=== PATIENT | male | born 1935 | race Caucasian/White ===

== ENCOUNTER 2021-01-18 16:25 | Inpatient (IN) | payer BC, OTHER ==
[~2021-01-18] VITALS: Ht 182.9 cm; Wt 71.7 kg
[~2021-01-18 16:25] MED LIST: ALPR0.5T6 PO; ANTI1CAP PO; ASPI-630 PO; ASPI325T11 PO; ATOR20TA58 PO; ATOR40TA59 PO; CHOL200059 PO; CLOP75TA PO; FERR-36 PO; GABA600T7 PO; HYDR500C16 PO; METO25TA4 PO; OMEG-33 PO; TAMS0.4C97 PO; b-12 PO
[2021-01-18] MEDS ORDERED: IV NORMAL SALINE 1000ML BAG 1,000 ML IV ONE (17:00)
[2021-01-18 17:23] LABS: BASO % 0 % (0-3); EOS % 0 % (0-3); HEMATOCRIT 37.1 % (39.0-53.0); HEMOGLOBIN 12.9 g/dL (13.0-17.5); LYMPH # 0.2 x10^3/uL (1.0-4.8); LYMPH % 6 % (24-48); MEAN CORPUSCULAR HEMOGLOBIN 43 pg (25-35); MEAN CORPUSCULAR HGB CONC 35 g/dL (31-37); MEAN CORPUSCULAR VOLUME 122 fL (79-100); MONO # 0.2 x10^3/uL (0.0-1.1); MONO % 7 % (0-9); NEUT # 2.5 x10^3/uL (1.8-7.7); NEUT % 86 % (31-73); PLATELET COUNT 224 x10^3/uL (140-400); RED BLOOD COUNT 3.04 x10^6/uL (4.30-5.70); RED CELL DISTRIBUTION WIDTH 16.4 % (11.5-14.5); WHITE BLOOD COUNT 2.9 x10^3/uL (4.0-11.0)
[2021-01-18 17:42] LABS: BARBITURATES NEG (NEG); BENZODIAZEPINES NEG (NEG); CANNABINOIDS NEG (NEG); COCAINE NEG (NEG); METHADONE NEG (NEG); OPIATES NEG (NEG); PHENCYCLIDINE NEG (NEG)
[2021-01-18 17:42] LABS: CREATININE 0.8 mg/dL (0.7-1.3); GFR 91.4; POTASSIUM 3.7 mmol/L (3.5-5.1)
[2021-01-18 17:45] LABS: AMPHETAMINE/METHAMPHETAMINE NEG (NEG)
[2021-01-18 17:52] LABS: % BANDS 1 % (0-9); % LYMPHS 8 % (24-48); % MONOS 5 % (0-10); % SEGS 86 % (35-66)
[2021-01-18 17:53] LABS: PLT ESTIMATE ADEQUATE (ADEQUATE)
[2021-01-18 17:54] LABS: ALBUMIN/GLOBULIN RATIO 1.1 (1.0-1.7); MAGNESIUM 1.6 mg/dL (1.8-2.4); TOTAL BILIRUBIN 0.6 mg/dL (0.2-1.0); TOTAL PROTEIN 5.7 g/dL (6.4-8.2)
[2021-01-18 17:57] LABS: CREATINE KINASE 73 U/L (39-308)
--- NOTE | 2021-01-18 17:58 | RAD ---
Exam: CT head INDICATION: Altered mental status, Covid positive TECHNIQUE: Sequential axial images through the head were obtained without the administration of IV co ntrast. Exposure: One or more of the following in the visualized dose reduction techniques were utilized for this examination: 1. Automated exposure control 2. Adjustment of the MA and/or KV according to patient size 3. Use of iterative of reconstructive technique Comparisons: 09/25/2015 FINDINGS: No focal parenchymal lesion or hemorrhage is identified. There is no midline shift or sulcal effaceme nt. Patchy evidence in the periventricular white matter. This is similar when compared to the prior exam. No acute vascular territory infarction is identified. Gomez-white distinction is preserved. The ventricular system is within normal limits without compression hydrocephalus. The basal cisterns are well maintained. The visualized portions of the paranasal sinuses and mastoid air cells are well-pneumatized. No acute fractures. IMPRESSION: No acute intracranial abnormality. Electronically signed by: Camryn Chavarria MD (01/18/2021 5:56 PM) [facility]
--- NOTE | 2021-01-18 18:21 | RAD ---
XR CHEST 1V History: Altered mental status Comparison: None. Technique: Portable AP radiograph of the chest. Findings: The lungs are adequately inflated. There are bibasilar somewhat linear opacities and a diffuse left l ower lobe opacity. The upper lobes are clear. No pleural effusion or pneumothorax. The cardiomediasti nal silhouette and pulmonary vasculature are within normal limits. Impression: 1. Diffuse left lower lobe opacity superimposed on linear basilar opacities may represent multifocal infection and/or atelectasis. Electronically signed by: Brian Jimenes MD (01/18/2021 6:18 PM) [facility]
--- NOTE | 2021-01-18 18:58 | EKG ---
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
--- NOTE | 2021-01-18 18:58 | EKG ---
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
[2021-01-18] MEDS ORDERED: HALOPERIDOL LACTATE 5 MG/ML VIAL. IM ONE (19:00)
--- NOTE | 2021-01-18 20:05 | PHYS DOC ---
Past Medical History Past Medical History: Hypertension, VA, Unknown Additional Past Medical Histor: PT IS POOR HISTORIAN. Past Surgical History: Other Additional Past Surgical Histo: CARDIAC STENTS. Unknown Smoking Status: Former Smoker Alcohol Use: None Drug Use: None General Adult EDM: Chief Complaint: SHORTNESS OF BREATH HPI: HPI: Patient is a 85 year old male with history of VA, hypertension, very hard of hearing, who presents to the ED today from home by EMS. I spoke to patient's daughter, she states patient has been outside for 30 to 45 minutes. When they went to check on him he was confused, he was also short of air. She states he has history of dementia but currently not acting like herself. She also states patient was tested for COVID-19 this morning because everybody in the house he lives is positive for Covid. Review of Systems: Review of Systems: Constitutional: Reports fever Eyes: Denies change in visual acuity. [] HENT: Denies nasal congestion or sore throat. [] Respiratory: Reports shortness of breath Cardiovascular: Denies chest pain or edema. [] GI: Denies abdominal pain, nausea, vomiting, bloody stools or diarrhea. [] : Denies dysuria. [] Musculoskeletal: Denies back pain or joint pain. [] Integument: Denies rash. [] Neurologic: Reports altered mental status. Denies headache, focal weakness or sensory changes. [] Psychiatric: Denies depression or anxiety. [] Heart Score: C/O Chest Pain: N/A Risk Factors: Risk Factors: DM, Current or recent (<one month) smoker, HTN, HLP, family history of CAD, obesity. Risk Scores: Score 0 - 3: 2.5% MACE over next 6 weeks - Discharge Home Score 4 - 6: 20.3% MACE over next 6 weeks - Admit for Clinical Observation Score 7 - 10: 72.7% MACE over next 6 weeks - Early Invasive Strategies Current Medications: Current Medications Medications (Trade) Dose Ordered Sig/Carrillo Start Time Stop Time Status Last Admin Dose Admin Haloperidol Lactate (Haldol Inj) 5 mg 1X ONCE 01/18/21 19:00 01/18/21 19:01 DC 01/18/21 18:59 5 MG Sodium Chloride 1,000 ml @ 1,000 mls/hr 1X ONCE 01/18/21 17:00 01/18/21 17:59 DC 01/18/21 17:20 1,000 MLS/HR Allergies: Allergies: Allergies Coded Allergies Type Severity Reaction Last Updated Verified morphine Allergy Intermediate 01/18/21 Yes Physical Exam: PE: Constitutional: Well developed, well nourished, no acute distress, non-toxic appearance. [] HENT: Normocephalic, atraumatic, bilateral external ears normal, oropharynx moist, no oral exudates, nose normal. Very [place] Eyes: PERRLA, EOMI, conjunctiva normal, no discharge. [] Neck: Normal range of motion, no tenderness, supple, no stridor. [] Cardiovascular:Heart rate regular rhythm Lungs & Thorax: Diminished breath sounds Abdomen: Bowel sounds normal, soft, no tenderness, no masses, no pulsatile masses. [] Skin: Warm, dry, no erythema, no rash. [] Back: No tenderness, no CVA tenderness. [] Extremities: No tenderness, no cyanosis, no clubbing, ROM intact, no edema. [] Neurologic: Alert and oriented X 1-2, normal motor function, normal sensory function, no focal deficits noted. Cranial nerves II through XII intact Psychologic: Flat affect Current Patient Data: Labs: Laboratory Tests Test 01/18/21 16:53 01/18/21 17:00 01/18/21 17:18 01/18/21 17:20 SARS-CoV-2 Antigen (Rapid) Positive (NEGATIVE) *A White Blood Count 2.9 x10^3/uL (4.0-11.0) L Red Blood Count 3.04 x10^6/uL (4.30-5.70) L Hemoglobin 12.9 g/dL (13.0-17.5) L Hematocrit 37.1 % (39.0-53.0) L Mean Corpuscular Volume 122 fL (79-100) H Mean Corpuscular Hemoglobin 43 pg (25-35) H Mean Corpuscular Hemoglobin Concent 35 g/dL (31-37) Red Cell Distribution Width 16.4 % (11.5-14.5) H Platelet Count 224 x10^3/uL (140-400) Neutrophils (%) (Auto) 86 % (31-73) H Lymphocytes (%) (Auto) 6 % (24-48) L Monocytes (%) (Auto) 7 % (0-9) Eosinophils (%) (Auto) 0 % (0-3) Basophils (%) (Auto) 0 % (0-3) Neutrophils # (Auto) 2.5 x10^3/uL (1.8-7.7) Lymphocytes # (Auto) 0.2 x10^3/uL (1.0-4.8) L Monocytes # (Auto) 0.2 x10^3/uL (0.0-1.1) Eosinophils # (Auto) 0.0 x10^3/uL (0.0-0.7) Basophils # (Auto) 0.0 x10^3/uL (0.0-0.2) Segmented Neutrophils % 86 % (35-66) H Band Neutrophils % 1 % (0-9) Lymphocytes % 8 % (24-48) L Monocytes % 5 % (0-10) Platelet Estimate Adequate (ADEQUATE) Macrocytosis Marked Sodium Level 138 mmol/L (136-145) Potassium Level 3.7 mmol/L (3.5-5.1) Chloride Level 105 mmol/L (98-107) Carbon Dioxide Level 22 mmol/L (21-32) Anion Gap 11 (6-14) Blood Urea Nitrogen 20 mg/dL (8-26) Creatinine 0.8 mg/dL (0.7-1.3) Estimated GFR (Cockcroft-Gault) 91.4 BUN/Creatinine Ratio 25 (6-20) H Glucose Level 108 mg/dL (70-99) H Lactic Acid Level 0.9 mmol/L (0.4-2.0) Calcium Level 8.0 mg/dL (8.5-10.1) L Magnesium Level 1.6 mg/dL (1.8-2.4) L Total Bilirubin 0.6 mg/dL (0.2-1.0) Aspartate Amino Transferase (AST) 21 U/L (15-37) Alanine Aminotransferase (ALT) 23 U/L (16-63) Alkaline Phosphatase 77 U/L (46-116) Ammonia 18 mcmol/L (11-34) Creatine Kinase 73 U/L (39-308) Creatine Kinase MB (Mass) 1.0 ng/mL (0.0-3.6) Creatine Kinase MB Relative Index % (0-4) Troponin I Quantitative < 0.017 ng/mL (0.000-0.055) DE-Xrf-S-Type Natriuretic Peptide 608 pg/mL (0-449) H Total Protein 5.7 g/dL (6.4-8.2) L Albumin 3.0 g/dL (3.4-5.0) L Albumin/Globulin Ratio 1.1 (1.0-1.7) Lipase 85 U/L (73-393) Thyroid Stimulating Hormone (TSH) 2.835 uIU/mL (0.358-3.74) POC Troponin I 0.01 ng/ml (<0.08) Urine Opiates Screen Neg (NEG) Urine Methadone Screen Neg (NEG) Urine Barbiturates Neg (NEG) Urine Phencyclidine Screen Neg (NEG) Urine Amphetamine/Methamphetamine Neg (NEG) Urine Benzodiazepines Screen Neg (NEG) Urine Cocaine Screen Neg (NEG) Urine Cannabinoids Screen Neg (NEG) Urine Ethyl Alcohol Neg (NEG) Laboratory Tests 01/18/21 17:00 Laboratory Tests 01/18/21 17:00 Vital Signs: Vital Signs Date Time Temp Pulse Resp B/P (MAP) Pulse Ox O2 Delivery O2 Flow Rate FiO2 01/18/21 16:45 121 118/65 (82) 91 Room Air 01/18/21 16:38 101.2 24 101.2 EKG: EKG: [] Radiology/Procedures: Radiology/Procedures: []PROCEDURE: CT HEAD WO CONTRAST Exam: CT head INDICATION: Altered mental status, Covid positive TECHNIQUE: Sequential axial images through the head were obtained without the administration of IV contrast. Exposure: One or more of the following in the visualized dose reduction techniques were utilized for this examination: 1. Automated exposure control 2. Adjustment of the MA and/or KV according to patient size 3. Use of iterative of reconstructive technique Comparisons: 09/25/2015 FINDINGS: No focal parenchymal lesion or hemorrhage is identified. There is no midline shift or sulcal effacement. Patchy evidence in the periventricular white matter. This is similar when compared to the prior exam. No acute vascular territory infarction is identified. Gomez-white distinction is preserved. The ventricular system is within normal limits without compression hydrocephalus. The basal cisterns are well maintained. The visualized portions of the paranasal sinuses and mastoid air cells are well- pneumatized. No acute fractures. IMPRESSION: No acute intracranial abnormality. Electronically signed by: Camryn Cabrera MD (01/18/2021 5:56 PM) [facility] DICTATED and SIGNED BY: CAMRYN CABRERA MD DATE: 01/18/21 [id number] PROCEDURE: PORTABLE CHEST 1V XR CHEST 1V History: Altered mental status Comparison: None. Technique: Portable AP radiograph of the chest. Findings: The lungs are adequately inflated. There are bibasilar somewhat linear opacities and a diffuse left lower lobe opacity. The upper lobes are clear. No pleural effusion or pneumothorax. The cardiomediastinal silhouette and pulmonary vasculature are within normal limits. Impression: 1. Diffuse left lower lobe opacity superimposed on linear basilar opacities may represent multifocal infection and/or atelectasis. Electronically signed by: Brian Carr MD (01/18/2021 6:18 PM) [facility] DICTATED and SIGNED BY: BRIAN CARR MD DATE: 01/18/21 [id number] Course & Med Decision Making: Course & Med Decision Making Pertinent Labs and Imaging studies reviewed. (See chart for details) This is a 85-year-old male patient presenting to the ED today to be evaluated for shortness of breath, fever, altered mental status. See HPI. Vitals on arrival to the ED temperature 101.2, heart rate 118, respiration 24, blood pressure 118/65, O2 sats 95% on room air. CBC with a WBC of 2.9, hemoglobin 12.9 with hematocrit of 37.1. CMP with magnesium of 1.6. Chest x-ray noted for possible pneumonia. Positive for COVID-19. CT of the head is negative. Spoke with Dr. Leo who accepted patient for admission Dragon Disclaimer: Alma Disclaimer: This electronic medical record was generated, in whole or in part, using a voice recognition dictation system. Departure Departure Impression: Primary Impression: SOB (shortness of breath) Additional Impressions: AMS (altered mental status) Qualified Codes: R41.82 - Altered mental status, unspecified COVID-19 Disposition: ADMITTED INPATIENT Condition: STABLE Referrals: BONNIE CAREY MD (PCP) SHO HOLLAND APRN Jan 18, 2021 20:05
[2021-01-18] MEDS ORDERED: ACETAMINOPHEN 325 MG TABLET. PO PRN (20:15)
[2021-01-18] MEDS ORDERED: ONDANSETRON PF 4 MG/2 ML VIAL. IVP PRN ×2 (20:15→23:30)
[2021-01-18] MEDS ORDERED: MECO10005 PO (22:08)
[2021-01-18] MEDS ORDERED: CETI10TA74 PO (22:08)
[2021-01-18] MEDS ORDERED: METO25TA4 PO (22:08)
[2021-01-18] MEDS ORDERED: Areds 2 PO (22:08)
[2021-01-18 22:26] VITALS: BP 130/56
[2021-01-18] MEDS ORDERED: REMDESIVIR LOAD in IV NORMAL SALINE 250ML TV IV ONE (22:30)
[2021-01-18 23:00] VITALS: BP 141/74
[2021-01-18] MEDS ORDERED: ACETAMINOPHEN 650 MG SUPP.RECT. PR PRN ×2 (23:00→23:30)
--- NOTE | 2021-01-18 23:22 | PDOC1 ---
History and Physical Date of Service: DOS: DATE: 01/18/21 TIME: 23:22 Chief Complaint: Chief Complain: Shortness of breath History of Present Illness: HPI: 85 year old male with history of MA, hypertension, very hard of hearing, who presents to the ED today from home by EMS. I spoke to patient's daughter, she states patient has been outside for 30 to 45 minutes. When they went to check on him he was confused, he was also short of air. She states he has history of dementia but currently not acting like herself. She also states patient was tested for COVID-19 this morning because everybody in the house he lives is positive for Covid. Past Medical/Surgical History: PMH/PSH: Past Medical History: Hypertension, MA, Past Surgical History: CARDIAC STENTS. Unknown Allergies: Allergies: Coded Allergies: morphine (Verified Allergy, Intermediate, 01/18/21) Family History: Family History: Reviewed with no relevant findings Social History: Social History: Smoking Status: Former Smoker Alcohol Use: None Drug Use: None Current Medications: Current Medications Current Medications Sodium Chloride 1,000 ml @ 1,000 mls/hr 1X ONCE IV Last administered on 01/18/21at 17:20; Start 01/18/21 at 17:00; Stop 01/18/21 at 17:59; Status DC Haloperidol Lactate (Haldol Inj) 5 mg 1X ONCE IM Last administered on 01/18/21at 18:59; Start 01/18/21 at 19:00; Stop 01/18/21 at 19:01; Status DC Lorazepam (Ativan Inj) 0.5 mg 1X ONCE IVP Last administered on 01/18/21at 20:10; Start 01/18/21 at 20:15; Stop 01/18/21 at 20:16; Status DC Lorazepam (Ativan Inj) 2 mg STK-MED ONCE .ROUTE ; Start 01/18/21 at 20:07; Stop 01/18/21 at 20:07; Status DC Ondansetron HCl (Zofran) 4 mg PRN Q8HRS PRN IVP NAUSEA/VOMITING; Start 01/18/21 at 20:15; Stop 01/19/21 at 20:14 Acetaminophen (Tylenol) 650 mg PRN Q4HRS PRN PO FEVER > 100.3'F; Start 01/18/21 at 20:15; Stop 01/19/21 at 20:14 Remdesivir 200 mg/ Sodium Chloride 210 ml @ 210 mls/hr 1X ONCE IV Last administered on 01/18/21at 23:08; Start 01/18/21 at 22:30; Stop 01/18/21 at 23:29 Remdesivir 100 mg/ Sodium Chloride 230 ml @ 460 mls/hr Q24H IV ; Start 01/19/21 at 21:00; Stop 01/22/21 at 21:29 Acetaminophen (Tylenol Supp) 650 mg PRN Q6HRS PRN [place] MILD PAIN / TEMP > 100.3'F Last administered on 01/18/21at 23:10; Start 01/18/21 at 23:00 Active Scripts Active Metoprolol Tartrate 25 Mg Tablet 12.5 Mg PO BID Clopidogrel (Clopidogrel Bisulfate) 75 Mg Tablet 75 Mg PO DAILYWBKFT Aspirin Ec (Aspirin) 325 Mg Tablet.dr 325 Mg PO DAILYWBKFT Vitamin D-3 (Cholecalciferol (Vitamin D3)) 2,000 Unit Tablet 2,000 Unit PO DAILY Iron (Ferrous Sulfate) 325 Mg Tablet 325 Mg PO DAILY Reported B12 Active (Mecobalamin) 1,000 Mcg Tab.chew 1,000 Mcg PO DAILY [Areds 2] 1 Tab PO BID Metoprolol Tartrate 25 Mg Tablet 1 Tab PO DAILY Zyrtec (Cetirizine Hcl) 10 Mg Tablet 1 Tab PO DAILY Hydroxyurea 500 Mg Capsule 1,500 Mg PO HS takes fr Mom to Sat. Nothing on Sun. [b-12] 2 Tab PO DAILY Atorvastatin Calcium 20 Mg Tablet 40 Mg PO HS ROS: Review of Systems Review of System Unable to obtain due to altered mental status Physical Exam: Vital Signs: Vital Signs Date Time Temp Pulse Resp B/P (MAP) Pulse Ox O2 Delivery O2 Flow Rate FiO2 01/18/21 22:26 103.0 88 130/56 (80) 93 Nasal Cannula 103.0 01/18/21 20:21 28 2.0 Physcial Exam: General: Well developed, well nourished, no acute distress, well appearing HEENT: Pupils equally round and reactive to light, EOMI, no discharge, normal conjunctiva Neck: Supple, no nuchal rigidity, no JVD, trachea midline, no tenderness Cardiac: RRR, no murmurs, no gallops, no rubs Chest/Lungs: CTAB, no wheeze, no rhonchi, no crackles Abdomen: soft, non-distended, no guarding, no peritoneal signs, non-tender Back: No tenderness Extremities: no edema, pulses intact, non-tender,capillary refill <3 sec bilateral upper and lower extremities, Neuro: Alert and oriented x 4, no focal deficits, normal speech Labs: Labs: Laboratory Tests Test 01/18/21 16:53 01/18/21 17:00 01/18/21 17:18 01/18/21 17:20 SARS-CoV-2 Antigen (Rapid) Positive (NEGATIVE) White Blood Count 2.9 x10^3/uL (4.0-11.0) Red Blood Count 3.04 x10^6/uL (4.30-5.70) Hemoglobin 12.9 g/dL (13.0-17.5) Hematocrit 37.1 % (39.0-53.0) Mean Corpuscular Volume 122 fL (79-100) Mean Corpuscular Hemoglobin 43 pg (25-35) Mean Corpuscular Hemoglobin Concent 35 g/dL (31-37) Red Cell Distribution Width 16.4 % (11.5-14.5) Platelet Count 224 x10^3/uL (140-400) Neutrophils (%) (Auto) 86 % (31-73) Lymphocytes (%) (Auto) 6 % (24-48) Monocytes (%) (Auto) 7 % (0-9) Eosinophils (%) (Auto) 0 % (0-3) Basophils (%) (Auto) 0 % (0-3) Neutrophils # (Auto) 2.5 x10^3/uL (1.8-7.7) Lymphocytes # (Auto) 0.2 x10^3/uL (1.0-4.8) Monocytes # (Auto) 0.2 x10^3/uL (0.0-1.1) Eosinophils # (Auto) 0.0 x10^3/uL (0.0-0.7) Basophils # (Auto) 0.0 x10^3/uL (0.0-0.2) Segmented Neutrophils % 86 % (35-66) Band Neutrophils % 1 % (0-9) Lymphocytes % 8 % (24-48) Monocytes % 5 % (0-10) Platelet Estimate Adequate (ADEQUATE) Macrocytosis Marked Sodium Level 138 mmol/L (136-145) Potassium Level 3.7 mmol/L (3.5-5.1) Chloride Level 105 mmol/L (98-107) Carbon Dioxide Level 22 mmol/L (21-32) Anion Gap 11 (6-14) Blood Urea Nitrogen 20 mg/dL (8-26) Creatinine 0.8 mg/dL (0.7-1.3) Estimated GFR (Cockcroft-Gault) 91.4 BUN/Creatinine Ratio 25 (6-20) Glucose Level 108 mg/dL (70-99) Lactic Acid Level 0.9 mmol/L (0.4-2.0) Calcium Level 8.0 mg/dL (8.5-10.1) Magnesium Level 1.6 mg/dL (1.8-2.4) Total Bilirubin 0.6 mg/dL (0.2-1.0) Aspartate Amino Transf (AST/SGOT) 21 U/L (15-37) Alanine Aminotransferase (ALT/SGPT) 23 U/L (16-63) Alkaline Phosphatase 77 U/L (46-116) Ammonia 18 mcmol/L (11-34) Creatine Kinase 73 U/L (39-308) Creatine Kinase MB (Mass) 1.0 ng/mL (0.0-3.6) Creatine Kinase MB Relative Index % (0-4) Troponin I Quantitative < 0.017 ng/mL (0.000-0.055) MK-Bhb-K-Type Natriuretic Peptide 608 pg/mL (0-449) Total Protein 5.7 g/dL (6.4-8.2) Albumin 3.0 g/dL (3.4-5.0) Albumin/Globulin Ratio 1.1 (1.0-1.7) Lipase 85 U/L (73-393) Procalcitonin < 0.05 ng/mL (0.00-0.10) Thyroid Stimulating Hormone (TSH) 2.835 uIU/mL (0.358-3.74) Bedside Troponin I 0.01 ng/ml (<0.08) Urine Opiates Screen Neg (NEG) Urine Methadone Screen Neg (NEG) Urine Barbiturates Neg (NEG) Urine Phencyclidine Screen Neg (NEG) Urine Amphetamine/Methamphetamine Neg (NEG) Urine Benzodiazepines Screen Neg (NEG) Urine Cocaine Screen Neg (NEG) Urine Cannabinoids Screen Neg (NEG) Urine Ethyl Alcohol Neg (NEG) Test 01/18/21 20:20 Troponin I Quantitative < 0.017 ng/mL (0.000-0.055) Laboratory Tests Test 01/18/21 16:53 01/18/21 17:00 01/18/21 17:18 01/18/21 17:20 SARS-CoV-2 Antigen (Rapid) Positive (NEGATIVE) White Blood Count 2.9 x10^3/uL (4.0-11.0) Red Blood Count 3.04 x10^6/uL (4.30-5.70) Hemoglobin 12.9 g/dL (13.0-17.5) Hematocrit 37.1 % (39.0-53.0) Mean Corpuscular Volume 122 fL (79-100) Mean Corpuscular Hemoglobin 43 pg (25-35) Mean Corpuscular Hemoglobin Concent 35 g/dL (31-37) Red Cell Distribution Width 16.4 % (11.5-14.5) Platelet Count 224 x10^3/uL (140-400) Neutrophils (%) (Auto) 86 % (31-73) Lymphocytes (%) (Auto) 6 % (24-48) Monocytes (%) (Auto) 7 % (0-9) Eosinophils (%) (Auto) 0 % (0-3) Basophils (%) (Auto) 0 % (0-3) Neutrophils # (Auto) 2.5 x10^3/uL (1.8-7.7) Lymphocytes # (Auto) 0.2 x10^3/uL (1.0-4.8) Monocytes # (Auto) 0.2 x10^3/uL (0.0-1.1) Eosinophils # (Auto) 0.0 x10^3/uL (0.0-0.7) Basophils # (Auto) 0.0 x10^3/uL (0.0-0.2) Segmented Neutrophils % 86 % (35-66) Band Neutrophils % 1 % (0-9) Lymphocytes % 8 % (24-48) Monocytes % 5 % (0-10) Platelet Estimate Adequate (ADEQUATE) Macrocytosis Marked Sodium Level 138 mmol/L (136-145) Potassium Level 3.7 mmol/L (3.5-5.1) Chloride Level 105 mmol/L (98-107) Carbon Dioxide Level 22 mmol/L (21-32) Anion Gap 11 (6-14) Blood Urea Nitrogen 20 mg/dL (8-26) Creatinine 0.8 mg/dL (0.7-1.3) Estimated GFR (Cockcroft-Gault) 91.4 BUN/Creatinine Ratio 25 (6-20) Glucose Level 108 mg/dL (70-99) Lactic Acid Level 0.9 mmol/L (0.4-2.0) Calcium Level 8.0 mg/dL (8.5-10.1) Magnesium Level 1.6 mg/dL (1.8-2.4) Total Bilirubin 0.6 mg/dL (0.2-1.0) Aspartate Amino Transf (AST/SGOT) 21 U/L (15-37) Alanine Aminotransferase (ALT/SGPT) 23 U/L (16-63) Alkaline Phosphatase 77 U/L (46-116) Ammonia 18 mcmol/L (11-34) Creatine Kinase 73 U/L (39-308) Creatine Kinase MB (Mass) 1.0 ng/mL (0.0-3.6) Creatine Kinase MB Relative Index % (0-4) Troponin I Quantitative < 0.017 ng/mL (0.000-0.055) HS-Rsx-M-Type Natriuretic Peptide 608 pg/mL (0-449) Total Protein 5.7 g/dL (6.4-8.2) Albumin 3.0 g/dL (3.4-5.0) Albumin/Globulin Ratio 1.1 (1.0-1.7) Lipase 85 U/L (73-393) Procalcitonin < 0.05 ng/mL (0.00-0.10) Thyroid Stimulating Hormone (TSH) 2.835 uIU/mL (0.358-3.74) Bedside Troponin I 0.01 ng/ml (<0.08) Urine Opiates Screen Neg (NEG) Urine Methadone Screen Neg (NEG) Urine Barbiturates Neg (NEG) Urine Phencyclidine Screen Neg (NEG) Urine Amphetamine/Methamphetamine Neg (NEG) Urine Benzodiazepines Screen Neg (NEG) Urine Cocaine Screen Neg (NEG) Urine Cannabinoids Screen Neg (NEG) Urine Ethyl Alcohol Neg (NEG) Test 01/18/21 20:20 Troponin I Quantitative < 0.017 ng/mL (0.000-0.055) Images: Images PROCEDURE: PORTABLE CHEST 1V Impression: 1. Diffuse left lower lobe opacity superimposed on linear basilar opacities may represent multifocal infection and/or atelectasis. Negative head CT Assessment/Plan Assessment/Plan Acute metabolic and infectious encephalopathy Acute hypoxic respiratory failure COVID-19 pneumonia Moderate protein malnutrition History of hypertension History of CAD with stents 2002 History of AAA repair in 2008 Admit to hospitalist service for further management Pulmonology consult Continue IV thiamine and vitamin C IV 4 mg dexamethasone Daily Pending ferritin, LDH, CRP, D-dimer labs Titrate O2 supplementation to maintain O2 saturation greater than 92% Lovenox for DVT prophylaxis Protonix GI prophylaxis ADA diet Full code Discussed with RN and SW Disposition inpatient management as above Surrogate decision maker is the Nette Arnold In addition to my E/M visit, advance care planning done with A total time of 20 minutes was spent from 10:00 to 1020 face to face in discussion with the family regarding their goals of care, CODE STATUS. Justifications for Admission Other Justification INDIO FRENCH MD Jan 18, 2021 23:22
[2021-01-18] MEDS ORDERED: DEXTROSE 50% 25 GM / 50ML DISP.SYRIN. IV PRN (23:30)
[2021-01-18] MEDS ORDERED: PROCHLORPERAZINE 10 MG/2 ML VIAL. IV PRN (23:30)
[2021-01-18] MEDS ORDERED: DOCUSATE SODIUM 100 MG CAPSULE. PO PRN (23:30)
[2021-01-18] MEDS ORDERED: ACETAMINOPHEN 650 MG/20.3 ML SOLUTION. GT PRN (23:30)
[2021-01-18] MEDS ORDERED: LABETALOL 20 MG/4 ML DISP.SYRIN. IVP PRN (23:30)
[2021-01-18] MEDS ORDERED: SENNOSIDES 8.6 MG TABLET PO PRN (23:30)
[2021-01-18] MEDS: cefTRIAXone IV Push 1 GM VIAL. IVP SCH (23:58)
[2021-01-18] MEDS: AZITHROMYCIN 500 MG in IV NORMAL SALINE 250ML 250 ML IV SCH (23:59)
[2021-01-19] MEDS: ENOXAPARIN 40 MG/0.4 ML SYRINGE. SQ SCH ×2 (00:55→20:33)
[2021-01-19 03:00] VITALS: BP 129/67
[2021-01-19] MEDS: methylPREDNISolone SOD SUCC PF 125 MG/2 ML VIAL. IV SCH ×3 (05:30→22:23)
[2021-01-19 07:00] VITALS: BP 104/50
[2021-01-19] MEDS ORDERED: MAGNESIUM SULFATE 2GM 50 ML IV ONE (07:45)
[2021-01-19 08:57] LABS: BASO % 0 % (0-3); EOS % 0 % (0-3); HEMOGLOBIN 13.3 g/dL (13.0-17.5); LYMPH # 0.2 x10^3/uL (1.0-4.8); LYMPH % 6 % (24-48); MEAN CORPUSCULAR HEMOGLOBIN 43 pg (25-35); MEAN CORPUSCULAR HGB CONC 35 g/dL (31-37); MEAN CORPUSCULAR VOLUME 123 fL (79-100); MONO # 0.1 x10^3/uL (0.0-1.1); MONO % 3 % (0-9); NEUT # 3.9 x10^3/uL (1.8-7.7); NEUT % 91 % (31-73); PLATELET COUNT 209 x10^3/uL (140-400); RED BLOOD COUNT 3.09 x10^6/uL (4.30-5.70); RED CELL DISTRIBUTION WIDTH 16.4 % (11.5-14.5); WHITE BLOOD COUNT 4.2 x10^3/uL (4.0-11.0)
[2021-01-19 09:09] LABS: ALBUMIN 2.9 g/dL (3.4-5.0); CALCIUM 7.7 mg/dL (8.5-10.1); CREATININE 0.9 mg/dL (0.7-1.3); GFR 79.8; POTASSIUM 3.3 mmol/L (3.5-5.1); TOTAL BILIRUBIN 0.6 mg/dL (0.2-1.0); TOTAL PROTEIN 5.9 g/dL (6.4-8.2)
[2021-01-19 09:15] LABS: MAGNESIUM 1.7 mg/dL (1.8-2.4); PHOSPHORUS 2.8 mg/dL (2.6-4.7)
[2021-01-19] MEDS: ZINC SULFATE 220 MG CAPSULE. PO SCH (10:57)
[2021-01-19] MEDS: THIAMINE 100 MG TABLET. PO SCH (10:57)
[2021-01-19] MEDS: PANTOPRAZOLE 40 MG TABLET.DR. PO SCH (10:57)
[2021-01-19] MEDS: ASCORBIC ACID 1,000 MG TABLET PO SCH ×3 (10:57→22:23)
[2021-01-19 11:00] VITALS: BP 123/74
--- NOTE | 2021-01-19 13:07 | NUR ---
SW following. Discussed with RN, pt from home, 2L (does not use oxygen at home), cardiac diet. COVID-19 positive. PT/OT to be ordered. SW will continue to follow.
[2021-01-19 15:00] VITALS: BP 115/58
--- NOTE | 2021-01-19 15:36 | PDOC ---
[facility] PROGRESS NOTE Date of Service DOS: DATE: 01/19/21 TIME: 15:35 Chief Complaint Chief Complaint Assessment/Plan Acute metabolic and infectious encephalopathy Acute hypoxic respiratory failure COVID-19 pneumonia Moderate protein malnutrition History of hypertension History of CAD with stents 2002 History of AAA repair in 2008 Admit to hospitalist service for further management Pulmonology consult Continue IV thiamine and vitamin C IV 4 mg dexamethasone Daily Pending ferritin, LDH, CRP, D-dimer labs Titrate O2 supplementation to maintain O2 saturation greater than 92% Lovenox for DVT prophylaxis Protonix GI prophylaxis ADA diet Full code Discussed with RN and SW Disposition inpatient management as above Surrogate decision maker is the Nette Arnold History of Present Illness History of Present Illness 85 year old male with history of [place], hypertension, very hard of hearing, who presents to the ED today from home by EMS. I spoke to patient's daughter, she states patient has been outside for 30 to 45 minutes. When they went to check on him he was confused, he was also short of air. She states he has history of dementia but currently not acting like herself. She also states patient was tested for COVID-19 this morning because everybody in the house he lives is p ositive for Covid. He 1221 No acute events overnight. Patient saturating 96% on 2 L nasal cannula. Patient did have a fever 103 overnight. No concerns nursing at this time. Patient's chart, labs, images were reviewed and discussed with RN Vitals/I&O Vitals/I&O: Vital Signs Date Time Temp Pulse Resp B/P (MAP) Pulse Ox O2 Delivery O2 Flow Rate FiO2 01/19/21 11:00 97.6 103 18 123/74 (90) 92 Nasal Cannula 2.0 97.6 I & O 01/18/21 01/18/21 01/19/21 15:00 23:00 07:00 Intake Total 1900 ml Output Total 0 ml 0 ml Balance 1900 ml 0 ml Physical Exam General: Alert, Cooperative Heart: Regular rate Lungs: Clear Abdomen: No tenderness Extremities: No clubbing, No edema Skin: No rashes, No significant lesion Labs Labs: Laboratory Tests Test 01/18/21 16:53 01/18/21 17:00 01/18/21 17:18 01/18/21 17:20 SARS-CoV-2 Antigen (Rapid) Positive (NEGATIVE) White Blood Count 2.9 x10^3/uL (4.0-11.0) Red Blood Count 3.04 x10^6/uL (4.30-5.70) Hemoglobin 12.9 g/dL (13.0-17.5) Hematocrit 37.1 % (39.0-53.0) Mean Corpuscular Volume 122 fL (79-100) Mean Corpuscular Hemoglobin 43 pg (25-35) Mean Corpuscular Hemoglobin Concent 35 g/dL (31-37) Red Cell Distribution Width 16.4 % (11.5-14.5) Platelet Count 224 x10^3/uL (140-400) Neutrophils (%) (Auto) 86 % (31-73) Lymphocytes (%) (Auto) 6 % (24-48) Monocytes (%) (Auto) 7 % (0-9) Eosinophils (%) (Auto) 0 % (0-3) Basophils (%) (Auto) 0 % (0-3) Neutrophils # (Auto) 2.5 x10^3/uL (1.8-7.7) Lymphocytes # (Auto) 0.2 x10^3/uL (1.0-4.8) Monocytes # (Auto) 0.2 x10^3/uL (0.0-1.1) Eosinophils # (Auto) 0.0 x10^3/uL (0.0-0.7) Basophils # (Auto) 0.0 x10^3/uL (0.0-0.2) Segmented Neutrophils % 86 % (35-66) Band Neutrophils % 1 % (0-9) Lymphocytes % 8 % (24-48) Monocytes % 5 % (0-10) Platelet Estimate Adequate (ADEQUATE) Macrocytosis Marked Sodium Level 138 mmol/L (136-145) Potassium Level 3.7 mmol/L (3.5-5.1) Chloride Level 105 mmol/L (98-107) Carbon Dioxide Level 22 mmol/L (21-32) Anion Gap 11 (6-14) Blood Urea Nitrogen 20 mg/dL (8-26) Creatinine 0.8 mg/dL (0.7-1.3) Estimated GFR (Cockcroft-Gault) 91.4 BUN/Creatinine Ratio 25 (6-20) Glucose Level 108 mg/dL (70-99) Lactic Acid Level 0.9 mmol/L (0.4-2.0) Calcium Level 8.0 mg/dL (8.5-10.1) Magnesium Level 1.6 mg/dL (1.8-2.4) Total Bilirubin 0.6 mg/dL (0.2-1.0) Aspartate Amino Transf (AST/SGOT) 21 U/L (15-37) Alanine Aminotransferase (ALT/SGPT) 23 U/L (16-63) Alkaline Phosphatase 77 U/L (46-116) Ammonia 18 mcmol/L (11-34) Creatine Kinase 73 U/L (39-308) Creatine Kinase MB (Mass) 1.0 ng/mL (0.0-3.6) Creatine Kinase MB Relative Index % (0-4) Troponin I Quantitative < 0.017 ng/mL (0.000-0.055) OA-Iws-Q-Type Natriuretic Peptide 608 pg/mL (0-449) Total Protein 5.7 g/dL (6.4-8.2) Albumin 3.0 g/dL (3.4-5.0) Albumin/Globulin Ratio 1.1 (1.0-1.7) Lipase 85 U/L (73-393) Procalcitonin < 0.05 ng/mL (0.00-0.10) Thyroid Stimulating Hormone (TSH) 2.835 uIU/mL (0.358-3.74) Bedside Troponin I 0.01 ng/ml (<0.08) Urine Opiates Screen Neg (NEG) Urine Methadone Screen Neg (NEG) Urine Barbiturates Neg (NEG) Urine Phencyclidine Screen Neg (NEG) Urine Amphetamine/Methamphetamine Neg (NEG) Urine Benzodiazepines Screen Neg (NEG) Urine Cocaine Screen Neg (NEG) Urine Cannabinoids Screen Neg (NEG) Urine Ethyl Alcohol Neg (NEG) Test 01/18/21 20:20 01/19/21 00:35 01/19/21 07:00 01/19/21 07:10 Troponin I Quantitative < 0.017 ng/mL (0.000-0.055) C-Reactive Protein, Quantitative 27.4 mg/L (0-3.3) Procalcitonin ng/mL (0.00-0.10) White Blood Count 4.2 x10^3/uL (4.0-11.0) Red Blood Count 3.09 x10^6/uL (4.30-5.70) Hemoglobin 13.3 g/dL (13.0-17.5) Hematocrit 38.0 % (39.0-53.0) Mean Corpuscular Volume 123 fL (79-100) Mean Corpuscular Hemoglobin 43 pg (25-35) Mean Corpuscular Hemoglobin Concent 35 g/dL (31-37) Red Cell Distribution Width 16.4 % (11.5-14.5) Platelet Count 209 x10^3/uL (140-400) Neutrophils (%) (Auto) 91 % (31-73) Lymphocytes (%) (Auto) 6 % (24-48) Monocytes (%) (Auto) 3 % (0-9) Eosinophils (%) (Auto) 0 % (0-3) Basophils (%) (Auto) 0 % (0-3) Neutrophils # (Auto) 3.9 x10^3/uL (1.8-7.7) Lymphocytes # (Auto) 0.2 x10^3/uL (1.0-4.8) Monocytes # (Auto) 0.1 x10^3/uL (0.0-1.1) Eosinophils # (Auto) 0.0 x10^3/uL (0.0-0.7) Basophils # (Auto) 0.0 x10^3/uL (0.0-0.2) Sodium Level 138 mmol/L (136-145) Potassium Level 3.3 mmol/L (3.5-5.1) Chloride Level 103 mmol/L (98-107) Carbon Dioxide Level 20 mmol/L (21-32) Anion Gap 15 (6-14) Blood Urea Nitrogen 14 mg/dL (8-26) Creatinine 0.9 mg/dL (0.7-1.3) Estimated GFR (Cockcroft-Gault) 79.8 BUN/Creatinine Ratio 16 (6-20) Glucose Level 79 mg/dL (70-99) Calcium Level 7.7 mg/dL (8.5-10.1) Total Bilirubin 0.6 mg/dL (0.2-1.0) Aspartate Amino Transf (AST/SGOT) 48 U/L (15-37) Alanine Aminotransferase (ALT/SGPT) 24 U/L (16-63) Alkaline Phosphatase 71 U/L (46-116) Total Protein 5.9 g/dL (6.4-8.2) Albumin 2.9 g/dL (3.4-5.0) Albumin/Globulin Ratio 1.0 (1.0-1.7) Phosphorus Level 2.8 mg/dL (2.6-4.7) Magnesium Level 1.7 mg/dL (1.8-2.4) Comment Review of Relevant I have reviewed the following items letha (where applicable) has been applied. Medications: Current Medications Medications (Trade) Dose Ordered Sig/Carrillo Route PRN Reason Start Time Stop Time Status Last Admin Dose Admin Sodium Chloride 1,000 ml @ 1,000 mls/hr 1X ONCE IV 01/18/21 17:00 01/18/21 17:59 DC 01/18/21 17:20 Haloperidol Lactate (Haldol Inj) 5 mg 1X ONCE IM 01/18/21 19:00 01/18/21 19:01 DC 01/18/21 18:59 Lorazepam (Ativan Inj) 0.5 mg 1X ONCE IVP 01/18/21 20:15 01/18/21 20:16 DC 01/18/21 20:10 Remdesivir 200 mg/ Sodium Chloride 210 ml @ 210 mls/hr 1X ONCE IV 01/18/21 22:30 01/18/21 23:29 DC 01/18/21 23:08 Acetaminophen (Tylenol Supp) 650 mg PRN Q6HRS PRN GA MILD PAIN / TEMP > 100.3'F 01/18/21 23:00 01/18/21 23:10 Ascorbic Acid (Vitamin C) 3,000 mg TID PO 01/19/21 09:00 01/19/21 10:57 Methylprednisolone Sodium Succinate (SOLU-Medrol 125MG VIAL) 125 mg Q8HRS IV 01/19/21 06:00 01/19/21 05:30 Thiamine Mononitrate (Vitamin B-1) 300 mg DAILY PO 01/19/21 09:00 01/19/21 10:57 Zinc Sulfate (Orazinc) 220 mg DAILY PO 01/19/21 09:00 01/19/21 10:57 Enoxaparin Sodium (Lovenox 40mg Syringe) 40 mg QHS SQ 01/18/21 23:45 01/19/21 00:55 Pantoprazole Sodium (Protonix) 40 mg DAILYAC PO 01/19/21 07:30 01/19/21 10:57 Azithromycin 500 mg/Sodium Chloride 250 ml @ 250 mls/hr QHS IV 01/18/21 23:45 01/18/21 23:59 Ceftriaxone Sodium (Rocephin) 1 gm QHS IVP 01/18/21 23:45 01/18/21 23:58 Magnesium Sulfate 50 ml @ 25 mls/hr 1X ONCE IV 01/19/21 07:45 01/19/21 09:44 DC 01/19/21 10:56 Justifications for Admission Other Justification COVID-19 positive test (U07.1, COVID-19) with Acute Pneumonia (J12.89, Other viral pneumonia) (If respiratory failure or sepsis present, add as separate assessment) INDIO FRENCH MD Jan 19, 2021 15:36
[2021-01-19 19:00] VITALS: BP 111/61
[2021-01-19] MEDS: LACTOBACILLUS RHAMNOSUS GG 1 CAPSULE. PO SCH (20:32)
[2021-01-19] MEDS: REMDESIVIR 100mg in NORMAL SALINE 250ML X 4 DAYS IV SCH (20:32)
[2021-01-19] MEDS: cefTRIAXone IV Push 1 GM VIAL. IVP SCH (20:32)
[2021-01-19] MEDS: AZITHROMYCIN 500 MG in IV NORMAL SALINE 250ML 250 ML IV SCH (22:23)
[2021-01-19 23:00] VITALS: BP 118/60
[2021-01-20 03:00] VITALS: BP 108/56
[2021-01-20 04:50] LABS: BASO % 0 % (0-3); EOS % 0 % (0-3); HEMATOCRIT 38.3 % (39.0-53.0); HEMOGLOBIN 12.9 g/dL (13.0-17.5); LYMPH # 0.4 x10^3/uL (1.0-4.8); LYMPH % 6 % (24-48); MEAN CORPUSCULAR HEMOGLOBIN 43 pg (25-35); MEAN CORPUSCULAR HGB CONC 34 g/dL (31-37); MEAN CORPUSCULAR VOLUME 128 fL (79-100); MONO # 0.2 x10^3/uL (0.0-1.1); MONO % 2 % (0-9); NEUT # 6.7 x10^3/uL (1.8-7.7); NEUT % 92 % (31-73); PLATELET COUNT 196 x10^3/uL (140-400); RED CELL DISTRIBUTION WIDTH 16.6 % (11.5-14.5); WHITE BLOOD COUNT 7.3 x10^3/uL (4.0-11.0)
[2021-01-20 05:53] LABS: CREATININE 0.8 mg/dL (0.7-1.3); GFR 91.4; MAGNESIUM 2.4 mg/dL (1.8-2.4); POTASSIUM 4.1 mmol/L (3.5-5.1)
[2021-01-20] MEDS: PANTOPRAZOLE 40 MG TABLET.DR. PO SCH (06:22)
[2021-01-20] MEDS: methylPREDNISolone SOD SUCC PF 125 MG/2 ML VIAL. IV SCH ×3 (06:22→20:59)
[2021-01-20 07:00] VITALS: BP 96/40
[2021-01-20] MEDS: LACTOBACILLUS RHAMNOSUS GG 1 CAPSULE. PO SCH ×2 (08:17→20:59)
[2021-01-20] MEDS: ZINC SULFATE 220 MG CAPSULE. PO SCH (08:17)
[2021-01-20] MEDS: THIAMINE 100 MG TABLET. PO SCH (08:17)
[2021-01-20] MEDS: ASCORBIC ACID 1,000 MG TABLET PO SCH ×3 (08:17→20:58)
[2021-01-20 11:00] VITALS: BP 113/45
--- NOTE | 2021-01-20 11:34 | NUR ---
SW following. Discussed with RN, pt from home with daughter, does not use oxygen at home, cardiac diet. COVID-19 positive. Pt on day 3 of Remdesivir. PT/OT ordered. SW will continue to follow.
--- NOTE | 2021-01-20 13:13 | PDOC ---
[employer] [facility] PROGRESS NOTE Date of Service DOS: DATE: 01/20/21 TIME: 13:13 Chief Complaint Chief Complaint Assessment/Plan Acute metabolic and infectious encephalopathy Acute hypoxic respiratory failure COVID-19 pneumonia Moderate protein malnutrition History of hypertension History of CAD with stents 2002 History of AAA repair in 2008 Admit to hospitalist service for further management Pulmonology consult Continue IV thiamine and vitamin C IV 4 mg dexamethasone Daily Pending ferritin, LDH, CRP, D-dimer labs Titrate O2 supplementation to maintain O2 saturation greater than 92% Lovenox for DVT prophylaxis Protonix GI prophylaxis ADA diet Full code Discussed with RN and SW Disposition inpatient management as above Surrogate decision maker is the Nette Arnold History of Present Illness History of Present Illness 85 year old male with history of [place], hypertension, very hard of hearing, who presents to the ED today from home by EMS. I spoke to patient's daughter, she states patient has been outside for 30 to 45 minutes. When they went to check on him he was confused, he was also short of air. She states he has history of dementia but currently not acting like herself. She also states patient was tested for COVID-19 this morning because everybody in the house he lives is p ositive for Covid. 01/19/21 No acute events overnight. Patient saturating 96% on 2 L nasal cannula. Patient did have a fever 103 overnight. No concerns nursing at this time. Patient's chart, labs, images were reviewed and discussed with RN 01/20/2021 No acute events overnight. Patient saturating 94% on 2 L nasal cannula. Currently on Remdesivir day 3 out of 5. PT OT evaluation ordered. Patient's chart, labs, images were reviewed and discussed with RN Vitals/I&O Vitals/I&O: Vital Signs Date Time Temp Pulse Resp B/P (MAP) Pulse Ox O2 Delivery O2 Flow Rate FiO2 01/20/21 11:00 97.7 65 18 113/45 (67) 96 Nasal Cannula 2.0 97.7 I & O 01/19/21 01/19/21 01/20/21 15:00 23:00 07:00 Intake Total 300 ml Output Total 100 ml Balance 300 ml -100 ml Physical Exam General: Alert, Cooperative Heart: Regular rate Lungs: Clear Abdomen: No tenderness Extremities: No clubbing, No edema Skin: No rashes, No significant lesion Labs Labs: Laboratory Tests Test 01/20/21 04:30 White Blood Count 7.3 x10^3/uL (4.0-11.0) Red Blood Count 3.00 x10^6/uL (4.30-5.70) Hemoglobin 12.9 g/dL (13.0-17.5) Hematocrit 38.3 % (39.0-53.0) Mean Corpuscular Volume 128 fL (79-100) Mean Corpuscular Hemoglobin 43 pg (25-35) Mean Corpuscular Hemoglobin Concent 34 g/dL (31-37) Red Cell Distribution Width 16.6 % (11.5-14.5) Platelet Count 196 x10^3/uL (140-400) Neutrophils (%) (Auto) 92 % (31-73) Lymphocytes (%) (Auto) 6 % (24-48) Monocytes (%) (Auto) 2 % (0-9) Eosinophils (%) (Auto) 0 % (0-3) Basophils (%) (Auto) 0 % (0-3) Neutrophils # (Auto) 6.7 x10^3/uL (1.8-7.7) Lymphocytes # (Auto) 0.4 x10^3/uL (1.0-4.8) Monocytes # (Auto) 0.2 x10^3/uL (0.0-1.1) Eosinophils # (Auto) 0.0 x10^3/uL (0.0-0.7) Basophils # (Auto) 0.0 x10^3/uL (0.0-0.2) Sodium Level 137 mmol/L (136-145) Potassium Level 4.1 mmol/L (3.5-5.1) Chloride Level 107 mmol/L (98-107) Carbon Dioxide Level 21 mmol/L (21-32) Anion Gap 9 (6-14) Blood Urea Nitrogen 21 mg/dL (8-26) Creatinine 0.8 mg/dL (0.7-1.3) Estimated GFR (Cockcroft-Gault) 91.4 Glucose Level 148 mg/dL (70-99) Calcium Level 8.0 mg/dL (8.5-10.1) Magnesium Level 2.4 mg/dL (1.8-2.4) Comment Review of Relevant I have reviewed the following items letha (where applicable) has been applied. Medications: Current Medications Medications (Trade) Dose Ordered Sig/Carrillo Route PRN Reason Start Time Stop Time Status Last Admin Dose Admin Remdesivir 100 mg/ Sodium Chloride 230 ml @ 460 mls/hr Q24H IV 01/19/21 21:00 01/22/21 21:29 01/19/21 20:32 Lactobacillus Rhamnosus (Culturelle) 1 cap BID PO 01/19/21 21:00 01/20/21 08:17 Justifications for Admission Other Justification COVID-19 positive test (U07.1, COVID-19) with Acute Pneumonia (J12.89, Other viral pneumonia) (If respiratory failure or sepsis present, add as separate assessment) INDIO FRENCH MD Jan 20, 2021 13:13
[2021-01-20 15:00] VITALS: BP 139/68
[2021-01-20 19:23] VITALS: BP 123/66
[2021-01-20] MEDS: cefTRIAXone IV Push 1 GM VIAL. IVP SCH (20:58)
[2021-01-20] MEDS: ENOXAPARIN 40 MG/0.4 ML SYRINGE. SQ SCH (20:59)
[2021-01-20] MEDS: REMDESIVIR 100mg in NORMAL SALINE 250ML X 4 DAYS IV SCH (20:59)
[2021-01-20] MEDS: AZITHROMYCIN 500 MG in IV NORMAL SALINE 250ML 250 ML IV SCH (21:00)
[2021-01-20] MEDS: ACETAMINOPHEN 325 MG TABLET. PO PRN (21:27)
[2021-01-20 22:32] VITALS: BP 142/75
[2021-01-21 03:53] VITALS: BP 112/88
[2021-01-21] MEDS: ACETAMINOPHEN 325 MG TABLET. PO PRN ×3 (04:17→21:23)
[2021-01-21 05:17] LABS: BASO % 0 % (0-3); EOS % 0 % (0-3); HEMATOCRIT 39.9 % (39.0-53.0); HEMOGLOBIN 13.6 g/dL (13.0-17.5); LYMPH # 0.4 x10^3/uL (1.0-4.8); LYMPH % 4 % (24-48); MEAN CORPUSCULAR HEMOGLOBIN 43 pg (25-35); MEAN CORPUSCULAR HGB CONC 34 g/dL (31-37); MEAN CORPUSCULAR VOLUME 126 fL (79-100); MONO # 0.4 x10^3/uL (0.0-1.1); MONO % 4 % (0-9); NEUT # 10.2 x10^3/uL (1.8-7.7); NEUT % 93 % (31-73); PLATELET COUNT 259 x10^3/uL (140-400); RED BLOOD COUNT 3.16 x10^6/uL (4.30-5.70); RED CELL DISTRIBUTION WIDTH 16.4 % (11.5-14.5)
[2021-01-21 05:25] LABS: CALCIUM 8.2 mg/dL (8.5-10.1); GFR 70.7; MAGNESIUM 2.2 mg/dL (1.8-2.4); POTASSIUM 3.7 mmol/L (3.5-5.1)
[2021-01-21] MEDS: methylPREDNISolone SOD SUCC PF 125 MG/2 ML VIAL. IV SCH ×3 (05:48→21:23)
[2021-01-21 07:00] VITALS: BP 108/71
[2021-01-21] MEDS: LACTOBACILLUS RHAMNOSUS GG 1 CAPSULE. PO SCH ×2 (08:37→21:23)
[2021-01-21] MEDS: THIAMINE 100 MG TABLET. PO SCH (08:37)
[2021-01-21] MEDS: PANTOPRAZOLE 40 MG TABLET.DR. PO SCH (08:38)
[2021-01-21] MEDS: ASCORBIC ACID 1,000 MG TABLET PO SCH ×3 (08:38→21:22)
[2021-01-21] MEDS: ZINC SULFATE 220 MG CAPSULE. PO SCH (09:00)
[2021-01-21 11:18] VITALS: BP 90/58
--- NOTE | 2021-01-21 14:03 | PDOC ---
[facility] [facility] PROGRESS NOTE Date of Service DOS: DATE: 01/21/21 TIME: 14:01 Chief Complaint Chief Complaint Assessment/Plan Acute metabolic and infectious encephalopathy Acute hypoxic respiratory failure COVID-19 pneumonia Moderate protein malnutrition History of hypertension History of CAD with stents 2002 History of AAA repair in 2008 Admit to hospitalist service for further management Pulmonology consult Continue IV thiamine and vitamin C IV 4 mg dexamethasone Daily Pending ferritin, LDH, CRP, D-dimer labs Titrate O2 supplementation to maintain O2 saturation greater than 92% Lovenox for DVT prophylaxis Protonix GI prophylaxis ADA diet Full code Discussed with RN and SW Disposition inpatient management as above Surrogate decision maker is the Nette Arnold History of Present Illness History of Present Illness 85 year old male with history of [place], hypertension, very hard of hearing, who presents to the ED today from home by EMS. I spoke to patient's daughter, she states patient has been outside for 30 to 45 minutes. When they went to check on him he was confused, he was also short of air. She states he has history of dementia but currently not acting like herself. She also states patient was tested for COVID-19 this morning because everybody in the house he lives is p ositive for Covid. 01/19/21 No acute events overnight. Patient saturating 96% on 2 L nasal cannula. Patient did have a fever 103 overnight. No concerns nursing at this time. Patient's chart, labs, images were reviewed and discussed with RN 01/20/2021 No acute events overnight. Patient saturating 94% on 2 L nasal cannula. Currently on Remdesivir day 3 out of 5. PT OT evaluation ordered. Patient's chart, labs, images were reviewed and discussed with RN 01/21/2021 No acute events overnight. Patient saturating 96% on 2 L nasal cannula. Patient seen ambulating towards the bathroom. No dyspnea. Some bouts of confusion and taking off nasal cannula. Easily redirected by nursing staff. Patient's chart, labs, images were reviewed and discussed with RN Vitals/I&O Vitals/I&O: Vital Signs Date Time Temp Pulse Resp B/P (MAP) Pulse Ox O2 Delivery O2 Flow Rate FiO2 01/21/21 11:18 97.5 71 20 90/58 (69) 94 Nasal Cannula 2.0 97.5 I & O 01/20/21 01/20/21 01/21/21 15:00 23:00 07:00 Intake Total 320 ml 300 ml 0 ml Output Total 300 ml Balance 320 ml 0 ml 0 ml Physical Exam General: Alert, Cooperative Heart: Regular rate Lungs: Clear Abdomen: No tenderness Extremities: No clubbing, No edema Skin: No rashes, No significant lesion Labs Labs: Laboratory Tests Test 01/21/21 04:45 01/21/21 04:58 White Blood Count 11.0 x10^3/uL (4.0-11.0) Red Blood Count 3.16 x10^6/uL (4.30-5.70) Hemoglobin 13.6 g/dL (13.0-17.5) Hematocrit 39.9 % (39.0-53.0) Mean Corpuscular Volume 126 fL (79-100) Mean Corpuscular Hemoglobin 43 pg (25-35) Mean Corpuscular Hemoglobin Concent 34 g/dL (31-37) Red Cell Distribution Width 16.4 % (11.5-14.5) Platelet Count 259 x10^3/uL (140-400) Neutrophils (%) (Auto) 93 % (31-73) Lymphocytes (%) (Auto) 4 % (24-48) Monocytes (%) (Auto) 4 % (0-9) Eosinophils (%) (Auto) 0 % (0-3) Basophils (%) (Auto) 0 % (0-3) Neutrophils # (Auto) 10.2 x10^3/uL (1.8-7.7) Lymphocytes # (Auto) 0.4 x10^3/uL (1.0-4.8) Monocytes # (Auto) 0.4 x10^3/uL (0.0-1.1) Eosinophils # (Auto) 0.0 x10^3/uL (0.0-0.7) Basophils # (Auto) 0.0 x10^3/uL (0.0-0.2) Sodium Level 138 mmol/L (136-145) Potassium Level 3.7 mmol/L (3.5-5.1) Chloride Level 105 mmol/L (98-107) Carbon Dioxide Level 23 mmol/L (21-32) Anion Gap 10 (6-14) Blood Urea Nitrogen 31 mg/dL (8-26) Creatinine 1.0 mg/dL (0.7-1.3) Estimated GFR (Cockcroft-Gault) 70.7 Glucose Level 144 mg/dL (70-99) Calcium Level 8.2 mg/dL (8.5-10.1) Magnesium Level 2.2 mg/dL (1.8-2.4) Comment Review of Relevant I have reviewed the following items letha (where applicable) has been applied. Justifications for Admission Other Justification COVID-19 positive test (U07.1, COVID-19) with Acute Pneumonia (J12.89, Other viral pneumonia) (If respiratory failure or sepsis present, add as separate assessment) INDIO FRENCH MD Jan 21, 2021 14:03
[2021-01-21 15:00] VITALS: BP 148/65
[2021-01-21 20:16] VITALS: BP 120/47
[2021-01-21] MEDS: AZITHROMYCIN 500 MG in IV NORMAL SALINE 250ML 250 ML IV SCH (21:22)
[2021-01-21] MEDS: REMDESIVIR 100mg in NORMAL SALINE 250ML X 4 DAYS IV SCH (21:22)
[2021-01-21] MEDS: ENOXAPARIN 40 MG/0.4 ML SYRINGE. SQ SCH (21:23)
[2021-01-21] MEDS: cefTRIAXone IV Push 1 GM VIAL. IVP SCH (21:24)
[2021-01-21 23:52] VITALS: BP 105/51
[2021-01-22 03:55] VITALS: BP 143/93
[2021-01-22] MEDS: methylPREDNISolone SOD SUCC PF 125 MG/2 ML VIAL. IV SCH (06:04)
[2021-01-22 06:56] VITALS: BP 125/62
[2021-01-22] MEDS: ACETAMINOPHEN 325 MG TABLET. PO PRN (08:49)
[2021-01-22] MEDS: THIAMINE 100 MG TABLET. PO SCH (08:49)
[2021-01-22] MEDS: PANTOPRAZOLE 40 MG TABLET.DR. PO SCH (08:49)
[2021-01-22] MEDS: ASCORBIC ACID 1,000 MG TABLET PO SCH ×3 (08:49→20:23)
[2021-01-22] MEDS: LACTOBACILLUS RHAMNOSUS GG 1 CAPSULE. PO SCH ×2 (08:50→20:23)
[2021-01-22] MEDS: ZINC SULFATE 220 MG CAPSULE. PO SCH (08:50)
[2021-01-22 11:00] VITALS: BP 142/92
--- NOTE | 2021-01-22 11:37 | PDOC ---
[facility] [facility] PROGRESS NOTE Date of Service DOS: DATE: 01/22/21 TIME: 11:36 Chief Complaint Chief Complaint Assessment/Plan Acute metabolic and infectious encephalopathy Acute hypoxic respiratory failure COVID-19 pneumonia Moderate protein malnutrition History of hypertension History of CAD with stents 2002 History of AAA repair in 2008 Admit to hospitalist service for further management Pulmonology consult Continue IV thiamine and vitamin C IV 4 mg dexamethasone Daily Pending ferritin, LDH, CRP, D-dimer labs Titrate O2 supplementation to maintain O2 saturation greater than 92% Lovenox for DVT prophylaxis Protonix GI prophylaxis ADA diet Full code Discussed with RN and SW Disposition inpatient management as above Surrogate decision maker is the Nette Arnold History of Present Illness History of Present Illness 85 year old male with history of [place], hypertension, very hard of hearing, who presents to the ED today from home by EMS. I spoke to patient's daughter, she states patient has been outside for 30 to 45 minutes. When they went to check on him he was confused, he was also short of air. She states he has history of dementia but currently not acting like herself. She also states patient was tested for COVID-19 this morning because everybody in the house he lives is p ositive for Covid. 01/19/21 No acute events overnight. Patient saturating 96% on 2 L nasal cannula. Patient did have a fever 103 overnight. No concerns nursing at this time. Patient's chart, labs, images were reviewed and discussed with RN 01/20/2021 No acute events overnight. Patient saturating 94% on 2 L nasal cannula. Currently on Remdesivir day 3 out of 5. PT OT evaluation ordered. Patient's chart, labs, images were reviewed and discussed with RN 01/21/2021 No acute events overnight. Patient saturating 96% on 2 L nasal cannula. Patient seen ambulating towards the bathroom. No dyspnea. Some bouts of confusion and taking off nasal cannula. Easily redirected by nursing staff. Patient's chart, labs, images were reviewed and discussed with RN 01/22/2021 No acute events overnight. Patient seen next recliner. Saturating 95% on 2 L nasal cannula. Patient easily redirectable from his confusion and he is not as demented compared to yesterday. Patient's chart, labs, images were reviewed and discussed with RN Vitals/I&O Vitals/I&O: Vital Signs Date Time Temp Pulse Resp B/P (MAP) Pulse Ox O2 Delivery O2 Flow Rate FiO2 01/22/21 11:00 97.4 80 18 142/92 (109) 93 Room Air 97.4 01/22/21 06:56 2.0 I & O 01/21/21 01/21/21 01/22/21 15:00 23:00 07:00 Intake Total 240 ml 120 ml Balance 240 ml 120 ml Physical Exam General: Alert, Cooperative Heart: Regular rate Lungs: Clear Abdomen: No tenderness Extremities: No clubbing, No edema Skin: No rashes, No significant lesion Comment Review of Relevant I have reviewed the following items letha (where applicable) has been applied. Justifications for Admission Other Justification COVID-19 positive test (U07.1, COVID-19) with Acute Pneumonia (J12.89, Other vi ral pneumonia) (If respiratory failure or sepsis present, add as separate assessment) INDIO FRENCH MD Jan 22, 2021 11:36
[2021-01-22] MEDS: methylPREDNISolone SOD SUCC PF 40 MG/ML VIAL. IV SCH ×2 (13:41→22:08)
[2021-01-22] MEDS: LOPERAMIDE 2 MG CAPSULE PO PRN (13:46)
[2021-01-22 15:00] VITALS: BP 155/71
[2021-01-22 19:00] VITALS: BP 142/84
[2021-01-22] MEDS: REMDESIVIR 100mg in NORMAL SALINE 250ML X 4 DAYS IV SCH (20:22)
[2021-01-22] MEDS: ENOXAPARIN 40 MG/0.4 ML SYRINGE. SQ SCH (20:23)
[2021-01-22] MEDS: AZITHROMYCIN 500 MG in IV NORMAL SALINE 250ML 250 ML IV SCH (22:00)
[2021-01-22] MEDS: cefTRIAXone IV Push 1 GM VIAL. IVP SCH (22:00)
[2021-01-22 23:00] VITALS: BP 148/69
[2021-01-23 03:01] VITALS: BP 117/55
[2021-01-23 03:02] VITALS: BP 117/55
[2021-01-23] MEDS: methylPREDNISolone SOD SUCC PF 40 MG/ML VIAL. IV SCH (06:13)
[2021-01-23] MEDS: PANTOPRAZOLE 40 MG TABLET.DR. PO SCH (06:13)
[2021-01-23 06:31] VITALS: BP 127/58
--- NOTE | 2021-01-23 08:42 | PDOC ---
[facility] [facility] PROGRESS NOTE Date of Service DOS: DATE: 01/23/21 TIME: 08:32 Chief Complaint Chief Complaint Assessment/Plan Acute metabolic and infectious encephalopathy Acute hypoxic respiratory failure COVID-19 pneumonia Moderate protein malnutrition History of hypertension History of CAD with stents 2002 History of AAA repair in 2008 Admit to hospitalist service for further management Continue IV thiamine and vitamin C IV 4 mg dexamethasone Daily Pending ferritin, LDH, CRP, D-dimer labs Titrate O2 supplementation to maintain O2 saturation greater than 92% Lovenox for DVT prophylaxis Protonix GI prophylaxis ADA diet Full code Discussed with RN and SW Disposition inpatient management as above Surrogate decision maker is the Nette Arnold History of Present Illness History of Present Illness Mr Arnold is an 85 year old male with history of CAD s/p stenting 2002 and 2015, AAA s/p repair 2008, hypertension, very hard of hearing, dementia, who presents to the ED today from home by EMS after wandering outside for 30 to 45 minutes per his daughter. When they went to check on him he was confused, he was also short of air. She states he has history of dementia but currently not acting like himself. Patient was tested for COVID-19 this morning because everybody in the house he lives is positive for Covid. He is positive, admitted for further care. 01/19: No acute events overnight. Patient saturating 96% on 2 L nasal cannula. Patient did have a fever 103 overnight. No concerns nursing at this time. Patient's chart, labs, images were reviewed and discussed with RN 01/20: No acute events overnight. Patient saturating 94% on 2 L nasal cannula. Currently on Remdesivir day 3 out of 5. PT OT evaluation ordered. Patient's chart, labs, images were reviewed and discussed with RN 01/21: No acute events overnight. Patient saturating 96% on 2 L nasal cannula. Patient seen ambulating towards the bathroom. No dyspnea. Some bouts of confusion and taking off nasal cannula. Easily redirected by nursing staff. PT recommending SNF for rehab 01/22: No acute events overnight. Patient seen next recliner. Saturating 95% on 2 L nasal cannula. Patient easily redirectable from his confusion and he is not as demented compared to yesterday. Patient's chart, labs, images were reviewed and discussed with RN Afebrile overnight. Able ambulate restroom with minimal assistance today. Easily redirectable but very confused. On 2L NCO2 Plan: Transition to PO steroids 6 minute walk Discharge planning SNF vs home health, will d/w daughter Vitals/I&O Vitals/I&O: Vital Signs Date Time Temp Pulse Resp B/P (MAP) Pulse Ox O2 Delivery O2 Flow Rate FiO2 01/23/21 06:31 97.6 66 20 127/58 (81) 90 Nasal Cannula 97.6 01/23/21 03:02 2.0 I & O 01/22/21 01/22/21 01/23/21 15:00 23:00 07:00 Intake Total 220 ml 120 ml Balance 220 ml 120 ml Physical Exam General: Alert, Cooperative Heart: Regular rate Lungs: Clear Abdomen: No tenderness Extremities: No clubbing, No edema Skin: No rashes, No significant lesion Comment Review of Relevant I have reviewed the following items letha (where applicable) has been applied. Medications: Current Medications Medications (Trade) Dose Ordered Sig/Carrillo Route PRN Reason Start Time Stop Time Status Last Admin Dose Admin Methylprednisolone Sodium Succinate (SOLU-Medrol 40MG VIAL) 40 mg Q8HRS IV 01/22/21 14:00 01/23/21 06:13 Loperamide HCl (Imodium) 2 mg PRN Q10MIN PRN PO DIARRHEA 01/22/21 13:45 01/22/21 13:46 Justifications for Admission Other Justification COVID-19 positive test (U07.1, COVID-19) with Acute Pneumonia (J12.89, Other v iral pneumonia) (If respiratory failure or sepsis present, add as separate assessment) JUAN SOTELO MD Jan 23, 2021 08:41
[2021-01-23] MEDS ORDERED: DEXAMETHASONE 4 MG TABLET PO SCH (08:45)
[2021-01-23] MEDS: THIAMINE 100 MG TABLET. PO SCH (10:35)
[2021-01-23] MEDS: LACTOBACILLUS RHAMNOSUS GG 1 CAPSULE. PO SCH (10:35)
[2021-01-23] MEDS: ASCORBIC ACID 1,000 MG TABLET PO SCH ×2 (10:35→15:49)
[2021-01-23] MEDS: ZINC SULFATE 220 MG CAPSULE. PO SCH (10:35)
[2021-01-23 11:30] VITALS: BP 135/72
--- NOTE | 2021-01-23 11:34 | NUR ---
SW following. Discussed with RN, pt from home with daughter, Abdulaziz (does not use oxygen at home), cardiac diet. COVID-19 positive. Therapy recommending SNF, however pt ambulating more in his room today. [facility] spoke with pt's daughter, Nette - she was expecting pt to return home at discharge, and is agreeable to home health. Nette reported he has had [facility] before. Nette does not have a preference for oxygen provider. Dr. Weldon notified of discussion with pt's daughter. SW will continue to follow. Addendum: 01/23/21 at 1446 by GAIL HAGAN SW [facility] fax[facility] to [facility]. [facility] o2 tank provided to RN for pt discharge. No further SW needs.
[2021-01-23] MEDS ORDERED: DOXY100T PO (13:40)
[2021-01-23] MEDS ORDERED: DEXA4TAB63 PO (13:40)
--- NOTE | 2021-01-23 13:42 | PDOC3 ---
Discharge Summary Visit Information Date of Admission: Jan 18, 2021 Date of Discharge: Jan 23, 2021 Brief Hospital Course Allergies Allergies Coded Allergies Type Severity Reaction Last Updated Verified morphine Allergy Intermediate 01/18/21 Yes Vital Signs Vital Signs Date Time Temp Pulse Resp B/P (MAP) Pulse Ox O2 Delivery O2 Flow Rate FiO2 01/23/21 06:31 97.6 66 20 127/58 (81) 90 Nasal Cannula 97.6 01/23/21 03:02 2.0 Brief Hospital Course Mr. Arnold is a 85 old [sex] who presented with [ ] Discharge Information Scheduled Aspirin (Aspirin Ec) 325 Mg Tablet., 325 MG PO DAILYWBKFT, #30 Ref 1 Prescribed by: PINA LANTIGUA MD on 09/29/15 1052 Last Action: Reviewed on 01/18/212207 by EMMANUELLE CELIS Atorvastatin Calcium (Atorvastatin Calcium) 20 Mg Tablet, 40 MG PO HS for cholesterol, #30 Ref 0 (Reported) Entered as Reported by: Bloa Larson on 09/25/15310 Last Action: Edited on 01/18/212207 by EMMANUELLE CELIS Cetirizine Hcl (Zyrtec) 10 Mg Tablet, 1 TAB PO DAILY for allergies, #30 Ref 2 (Reported) Entered as Reported by: EMMANUELLE CELIS on 01/18/212207 Last Action: New Order on 01/18/212207 by EMMANUELLE CELIS Cholecalciferol (Vitamin D3) (Vitamin D-3) 2,000 Unit Tablet, 2,000 UNIT PO DAILY, #1 Prescribed by: SABINA LOMELI on 09/07/13 0741 Last Action: Reviewed on 01/18/212207 by EMMANUELLE CELIS Clopidogrel Bisulfate (Clopidogrel) 75 Mg Tablet, 75 MG PO DAILYWBKFT, #30 Ref 1 Prescribed by: PINA LANTIGUA MD on 09/29/15 1052 Last Action: Reviewed on 01/18/212207 by EMMANUELLE CELIS Dexamethasone (Decadron) 4 Mg Tablet, 4 MG PO DAILYWBKFT for COVID 19 for 4 Days, #4 Prescribed by: JUAN SOTELO MD on 01/23/21 1340 Doxycycline Hyclate (Doxycycline Hyclate) 100 Mg Tablet, 1 TAB PO BID for Pneumonia for 4 Days, #8 Prescribed by: JUAN SOTELO MD on 01/23/21 1340 Ferrous Sulfate (Iron) 325 Mg Tablet, 325 MG PO DAILY, #1 Prescribed by: SABINA LOMELI on 09/07/13 0741 Last Action: Reviewed on 01/18/212207 by EMMANUELLE CELIS Hydroxyurea (Hydroxyurea) 500 Mg Capsule, 1,500 MG PO HS for blood condition, (Reported) takes fr Mom to Sat. Nothing on Sun. Entered as Reported by: Bola Larson on 09/25/15 0324 Last Action: Edited on 01/18/212207 by EMMANUELLE CELIS Mecobalamin (B12 Active) 1,000 Mcg Tab.chew, 1,000 MCG PO DAILY for supplement, (Reported) Entered as Reported by: EMMANUELLE CEILS on 01/18/212207 Last Action: New Order on 01/18/212207 by EMMANUELLE CELIS Metoprolol Tartrate (Metoprolol Tartrate) 25 Mg Tablet, 12.5 MG PO BID, #60 Ref 1 Prescribed by: PINA LANTIGUA MD on 09/29/15 1052 [Areds 2] , 1 TAB PO BID for vit for eyes, (Reported) Entered as Reported by: EMMANUELLE CELIS on 01/18/212207 Last Action: New Order on 01/18/212207 by EMMANUELLE CELIS [b-12] , 2 TAB PO DAILY, (Reported) Entered as Reported by: Bola Larson on 09/25/15 0313 Last Action: Reviewed on 01/18/212207 by EMMANUELLE CELIS Discontinued Medications Metoprolol Tartrate (Metoprolol Tartrate) 25 Mg Tablet, 1 TAB PO DAILY for HTN, #180 Ref 1 (Reported) Entered as Reported by: EMMANUELLE CELIS on 01/18/212207 Last Action: New Order on 01/18/212207 by JUAN ALLEN MD Jan 23, 2021 13:42
--- NOTE | 2021-01-23 13:42 | SNU/HH DC ---
DISCHARGE WITH HOME HEALTH DISCHARGE INFORMATION: Discharge Date: Jan 23, 2021 Final Diagnosis: COVID 19 pneumonia Condition on Discharge: Stable CODE STATUS: Code Status: Full HOME HEALTH: Face to Face: I certify this patient is under my care and that I, or a nurse practitioner or physician's payroll assistant working with me, had a face to face encounter that meets the physician face to face encounter requirements with this patient on 01/23/2021. Medical Complications: Dementia, Pneumonia Care Home For: Assess & Educate Safety, Medication Management RN For Eval/Treatment: Yes Physical Therapy For: Evalulation/Treatment Occupational Therapy For: Evaluation/Treatment Pt Meets Homebound Status: Fatigue w/ amb., Limited distance walking, Poor cognition POST DISCHARGE ORDERS: Activity Instructions for Disc: Activity as tolerated Weight Bearing Status after Di: Full weight bearing DIET AFTER DISCHARGE: Cardiac TREATMENT/EQUIPMENT ORDERS: Discharge Respiratory Equipmen: Oxygen CERTIFICATION STATEMENT: Certification Statement: Certification Statement: Based on the above finding, I certify that this patient is confined to the home and needs intermittent group home care, physical therapy and/or speech therapy, or continues to need occupational therapy.~ This patient is under my care, and I have initiated the establishment of the plan of care.~ This patient will be followed by myself or a community physician who will periodically review the plan of care. Home Meds Active Scripts Doxycycline Hyclate (DOXYCYCLINE HYCLATE) 100 Mg Tablet, 1 TAB PO BID for Pneumonia for 4 Days, #8 TAB Prov:JUAN SOTELO MD 01/23/21 Dexamethasone (Decadron) 4 Mg Tablet, 4 MG PO DAILYWBKFT for COVID 19 for 4 Days, #4 TAB Prov:JUAN SOTELO MD 01/23/21 Metoprolol Tartrate (METOPROLOL TARTRATE) 25 Mg Tablet, 12.5 MG PO BID, #60 TAB 1 Refill Prov:PINA LANTIGUA MD 09/29/15 Clopidogrel Bisulfate (CLOPIDOGREL) 75 Mg Tablet, 75 MG PO DAILYWBKFT, #30 TAB 1 Refill Prov:PINA LANTIGUA MD 09/29/15 Aspirin (ASPIRIN EC) 325 Mg Tablet.dr, 325 MG PO DAILYWBKFT, #30 TAB 1 Refill Prov:PINA LANTIGUA MD 09/29/15 Cholecalciferol (Vitamin D3) (VITAMIN D-3) 2,000 Unit Tablet, 2000 UNIT PO DAILY, #1 Prov:TINY HALL MD 09/07/13 Ferrous Sulfate (IRON) 325 Mg Tablet, 325 MG PO DAILY, #1 Prov:TINY HALL MD 09/07/13 Reported Medications Mecobalamin (B12 Active) 1,000 Mcg Tab.chew, 1000 MCG PO DAILY for supplement, TAB.CHEW 01/18/21 [Areds 2] No Conflict Check, 1 TAB PO BID for vit for eyes 01/18/21 Cetirizine Hcl (ZYRTEC) 10 Mg Tablet, 1 TAB PO DAILY for allergies, #30 TAB 2 Refills 01/18/21 Hydroxyurea (HYDROXYUREA) 500 Mg Capsule, 1500 MG PO HS for blood condition takes fr Mom to Sat. Nothing on 09/25/15 [b-12] No Conflict Check, 2 TAB PO DAILY 09/25/15 Atorvastatin Calcium (ATORVASTATIN CALCIUM) 20 Mg Tablet, 40 MG PO HS for cholesterol, #30 TAB 0 Refills 09/25/15 Discontinued Reported Medications Metoprolol Tartrate (METOPROLOL TARTRATE) 25 Mg Tablet, 1 TAB PO DAILY for HTN, #180 TAB 1 Refill 01/18/21 JUAN SOTELO MD Jan 23, 2021 13:42
[2021-01-23] MEDS: LOPERAMIDE 2 MG CAPSULE PO PRN (15:51)
--- NOTE | 2021-01-23 17:25 | NUR ---
DISCHARGE INSTRUCTIONS GIVEN TO PATIENTS' DAUGHTER SUKHJINDER OVER THE PHONE, QUESTIONS AND CONCERNS ANSWERED, SALINE LOCK REMOVED FROM PATIENTS' RIGHT FOREARM, BANDAGE APPLIED, ALL PERSONAL BELONGINGS GATHERED BY THIS SHINGLES ROOFER AND PLACED IN BAGS FOR DISCHARGED INCLUDING EYEGLASSES AND HEARING AID AND CANE, PATIENT TO ALSO LEAVE WITH O2 TANK PROVIDED BY [employer].
--- NOTE | 2021-01-23 18:45 | NUR ---
PATIENT LEAVES THE UNIT PER W/C AND ALONGSIDE THIS GEOLOGICAL SAMPLE TESTER, EMOTIONAL SUPPORT GIVEN, FOLLOW UP APPOINTMENTS ENCOURAGED.
== END 2021-01-23 18:45 | disposition home health service (06) | DRG 177 ==
LOC: ER 16:25 → 5 SOUTH 19:20
PROVIDERS: ADMIT Internal Medicine; ATTEND Internal Medicine
PROC: XW033E5 Introduction of Remdesivir Anti-infective into Peripheral Vein, Percutaneous Approach, New Technology Group 5 (ICD-10-PCS; principal; 2021-01-19)
DX: U07.1 COVID-19 (principal); J96.01 Acute respiratory failure with hypoxia; J12.82 Pneumonia due to coronavirus disease 2019; G93.41 Metabolic encephalopathy; E44.0 Moderate protein-calorie malnutrition; F03.90 Unspecified dementia, unspecified severity, without behavioral disturbance, psychotic disturbance, mood disturbance, and anxiety; H91.90 Unspecified hearing loss, unspecified ear; I10 Essential (primary) hypertension; I25.10 Atherosclerotic heart disease of native coronary artery without angina pectoris; I25.2 Old myocardial infarction; Z79.899 Other long term (current) drug therapy; Z86.79 Personal history of other diseases of the circulatory system; Z87.891 Personal history of nicotine dependence; Z95.5 Presence of coronary angioplasty implant and graft; Z68.21 Body mass index [BMI] 21.0-21.9, adult; Z88.8 Allergy status to other drugs, medicaments and biological substances
CPT/HCPCS: 36415; 70450; 71045; 80048; 80053; 80307; 82140; 82553; 83605; 83690; 83735; 83880; 84100; 84145; 84443; 84484; 85007; 85025; 86140; 87040; 87426; 87493; 93005; J0456; J0696; J1630; J1650; J2060; J2920; J2930; J3475; J7030; J7050; 97110-GP; 97530-GP; 97535-GO; 99285-25; G0378